=== PATIENT | female | born 1960 | race Hispanic/Latino ===

== ENCOUNTER 2016-09-03 08:59 | Emergency (ER) | payer OTHER ==
[2016-09-03 08:59] VITALS: BMI 24.7
[2016-09-03] MEDS ORDERED: Sodium Chloride 0.9% 500 ML IV ONE (09:42)
[2016-09-03] MEDS ORDERED: MethylPREDNISolone 40 mg Vial IVP STA (09:43)
[2016-09-03] MEDS ORDERED: Albuterol-Ipratrop 3 mg / 0.5 (3 ml) UD INH STA (09:44)
[2016-09-03] MEDS ORDERED: Albuterol-Ipratrop 3 mg / 0.5 (3 ml) UD ONE (09:52)
[2016-09-03] MEDS ORDERED: Sodium Chloride 0.9% 1,000 ML ONE (09:52)
[2016-09-03] MEDS ORDERED: MethylPREDNISolone 40 mg Vial ONE (09:52)
[2016-09-03 10:11] LABS: BASO # 0.1 K/uL (0.0-0.2); BASO % 0.7 % (0.0-2.0); EOS # 0.2 K/uL (0.0-0.7); EOS % 2.5 % (0.0-4.0); HEMATOCRIT 43.6 % (34.0-47.0); LYMPH # 1.6 K/uL (1.0-4.3); LYMPH % 22.1 % (20.0-40.0); MEAN CELL VOLUME 93.8 fL (81.0-99.0); MEAN CORPUSCULAR HEMOGLOBIN 30.8 pg (27.0-31.0); MEAN CORPUSCULAR HGB CONC 32.8 g/dL (33.0-37.0); MEAN PLATELET VOLUME 8.2 fL (7.2-11.7); MONO # 0.7 K/uL (0.0-0.8); NRBC % 0.1 % (0.0-2.0); RED CELL DISTRIBUTION WIDTH 13.6 % (11.5-14.5); WHITE BLOOD COUNT 7.4 K/uL (4.8-10.8)
[2016-09-03 10:22] LABS: CHLORIDE 104 mmol/L (98-107); SODIUM 140 mmol/L (132-148)
[2016-09-03 10:24] LABS: ALB/GLOB RATIO 1.2 (1.0-2.1); ALKALINE PHOSPHATASE 85 U/L (38-126); AST/SGOT 27 U/L (14-36); BILIRUBIN,TOTAL 0.5 mg/dL (0.2-1.3); CARBON DIOXIDE 24 mmol/L (22-30); GFR AFRICAN-AMERICAN > 60; TOTAL PROTEIN 7.5 g/dL (6.3-8.3)
--- NOTE | 2016-09-03 10:24 | C.PDOC ---
History Of Present Illness 56-year-old female, PMHx includes Asthma, presents to the emergency department with complaints of shortness of breath x3 days that is described as chest tightness. Patient notes that she used an inhaler previously for her symptoms, but ran out yesterday, resulting in her coming to the ED for evaluation. Patient notes a Hx of similar. Denies nausea/vomiting, dizziness, fevers, chills , chest pain, or any other associated symptoms. No other complaints at this time. Time Seen by Provider: 09/03/16 09:37 Chief Complaint (Nursing): Shortness Of Breath History Per: Patient History/Exam Limitations: no limitations Onset/Duration Of Symptoms: Days Current Symptoms Are (Timing): Still Present Past Medical History Reviewed: Historical Data, Nursing Documentation, Vital Signs Vital Signs: Last Vital Signs Temp 98.4 F 09/03/16 14:30 Pulse 70 09/03/16 14:30 Resp 18 09/03/16 14:30 BP 115/75 09/03/16 14:30 Pulse Ox 96 09/03/16 17:19 - Medical History PMH: Anxiety, Asthma, Back Problems, Emphysema, Fractures (R hip fx, L ankle , r arm), Chronic Pain (left hip pain) - [facility] Procedures LAPAROSCOPIC REPAIR UMBILICAL HERNIA W GRAFT OR PROSTHESIS (03/15/14) OTH LAPAROSCOPIC REP OTH HRN OF ANTER ABD WALL W GRF OR PROS (03/15/14) Family History: States: Unknown Family Hx - Social History Hx Tobacco Use: Yes Hx Alcohol Use: Yes Hx Substance Use: No - Immunization History Hx Tetanus Toxoid Vaccination: No Hx Influenza Vaccination: No Hx Pneumococcal Vaccination: No Review Of Systems Except As Marked, All Systems Reviewed And Found Negative. Constitutional: Negative for: Fever, Chills Cardiovascular: Negative for: Chest Pain (tightness) Respiratory: Positive for: Shortness of Breath. Negative for: Cough, Hemoptysis Gastrointestinal: Negative for: Nausea, Vomiting Skin: Negative for: Rash Neurological: Negative for: Weakness, Numbness, Headache, Dizziness Physical Exam - Physical Exam Appears: Non-toxic, No Acute Distress Skin: Normal Color, Warm, Dry, No Rash Head: Atraumatic, Normacephalic Eye(s): bilateral: Normal Inspection, EOMI Nose: Normal Oral Mucosa: Moist Lips: Normal Appearing Neck: Normal ROM Chest: Symmetrical Cardiovascular: Rhythm Regular Respiratory: No Accessory Muscle Use, Wheezing (scattered B/L) Gastrointestinal/Abdominal: Soft, No Tenderness Extremity: Normal ROM Neurological/Psych: Oriented x3, Normal Speech ED Course And Treatment - Laboratory Results Result Diagrams: 09/03/16 10:03 09/03/16 10:03 ECG: Interpreted By Me, Viewed By Me ECG Rhythm: Sinus Rhythm Rate From EC O2 Sat by Pulse Oximetry: 96 - Radiology CXR: Interpreted by Me, Viewed By Me CXR Interpretation: Yes: No Acute Disease Progress Note: EKG. BNP, CK-MB, CMP, C Phos, Trop I. Chest X-Ray. CBC, D- Dimer. Duoneb, IVF, Solu-Medrol. Reassess and Disposition. Progress: On re- evaluation, wheezing has improved. PT notes SOB persists minimally. Additional Duoneb will be ordered and pt will be reassessed. Progress: On re-evaluation, pts lungs are clear to auscultation bilaterally. Pt feels comfortable going home. Will be dc w/ Rx for nebulizer. Instructed to return to ER if symptoms persist or worsen. Disposition - Disposition Disposition: HOME/ ROUTINE Disposition Time: 14:17 Condition: STABLE Additional Instructions: Follow up with your primary medical doctor or clinic in 2-5 days for further evaluation. Take medications as prescribed. Return to the emergency department at any time if symptoms persist or worsen. Prescriptions: Albuterol HFA [Ventolin HFA 90 mcg/actuation (8 g)] 2 puff IH H2VOLRD #1 puff predniSONE [Prednisone] 40 mg PO DAILY #8 tab Instructions: Acute Bronchitis (ED) - Clinical Impression Clinical Impression: Bronchitis - Scribe Statement The provider has reviewed the documentation as recorded by the Diann Parker All medical record entries made by the Scribe were at my direction and personally dictated by me. I have reviewed the chart and agree that the record accurately reflects my personal performance of the history, physical exam, medical decision making, and the department course for this patient. I have also personally directed, reviewed, and agree with the discharge instructions and disposition.
[2016-09-03 10:25] LABS: ALT/SGPT 14 U/L (9-52); BLOOD UREA NITROGEN 12 mg/dL (7-17); CALCIUM 9.1 mg/dl (8.6-10.4); GLUCOSE,RANDOM 95 mg/dL (65-105)
--- NOTE | 2016-09-03 10:42 | RAD ---
HISTORY: SOB COMPARISON: 02/02/2015 TECHNIQUE: Chest PA and lateral FINDINGS: LUNGS: Mild hyperinflation common nonspecific. PLEURA: No significant pleural effusion identified. No pneumothorax apparent. CARDIOVASCULAR: Normal. OSSEOUS STRUCTURES: No significant abnormalities. VISUALIZED UPPER ABDOMEN: Normal. OTHER FINDINGS: None. IMPRESSION: Mild pulmonary hyperinflation. No pulmonary infiltrate.
[2016-09-03] MEDS ORDERED: Albuterol 0.083% Inhal Sol (2.5 mg/3 mL) UD IH STA (11:50)
[2016-09-03] MEDS ORDERED: Albuterol 0.083% Inhal Sol (2.5 mg/3 mL) UD ONE (12:32)
[2016-09-03 12:39] VITALS: BP 115/75; RESP 18
[2016-09-03 14:31] VITALS: PULSE 70; TEMP 98.4
[2016-09-03 15:25] VITALS: O2SAT 96
--- NOTE | 2016-09-04 12:27 | CARD ---
APPROVED REPORT EKG Measurement Heart [id number] <Conclusion> Normal sinus rhythm Normal ECG
== END 2016-09-03 14:38 | disposition home or self-care (01) ==
LOC: C.ER 08:59
DX: J40 Bronchitis, not specified as acute or chronic (principal)
CPT/HCPCS: 71020; 80053; 82550; 82553; 83880; 84484; 85025; 85378; 93005; 96374; 99285; J2920; J7040

== ENCOUNTER 2016-09-16 18:00 | Emergency (ER) | payer OTHER ==
[2016-09-16 18:01] VITALS: BMI 24.7
[2016-09-16 18:16] VITALS: BP 111/74; PULSE 97; RESP 18; TEMP 98.2; O2SAT 98
[2016-09-16] MEDS ORDERED: Naproxen 550 mg Tab PO STA (18:27)
[2016-09-16] MEDS ORDERED: Naproxen 550 mg Tab PO ONE (18:37)
--- NOTE | 2016-09-16 18:59 | C.PDOC ---
History Of Present Illness 56 year old patient presents to the ED complaining of pain to her right knee for the past few days. Patient states she feels a "popping" sensation in her knee which is followed by pain. Patient reports this started in Summer of 2015 and she thought it would resolve on its own. For the last few days, the pain has been worse. The pain is exacerbated by bending. Patient denies falls, injuries, bruising, numbness, weakness, or fever Time Seen by Provider: 09/16/16 18:24 Chief Complaint (Nursing): Lower Extremity Problem/Injury History Per: Patient History/Exam Limitations: no limitations Onset/Duration Of Symptoms: Days (past few) Current Symptoms Are (Timing): Still Present Severity: Mild Pain Scale Rating Of: 3 Recent travel outside of the [place]: No - Ankle/Foot Currently Unable To: Bend Or Move Past Medical History Reviewed: Historical Data, Nursing Documentation, Vital Signs Vital Signs: Last Vital Signs Temp 98.2 F 09/16/16 18:13 Pulse 97 H 09/16/16 18:13 Resp 18 09/16/16 18:13 BP 111/74 09/16/16 18:13 Pulse Ox 98 09/16/16 19:28 - Medical History PMH: Anxiety, Asthma, Back Problems, Emphysema, Fractures (R hip fx, L ankle , r arm), Gastrointestinal Ulcer, Chronic Pain (left hip pain) - [facility] Procedures LAPAROSCOPIC REPAIR UMBILICAL HERNIA W GRAFT OR PROSTHESIS (03/15/14) OTH LAPAROSCOPIC REP OTH HRN OF ANTER ABD WALL W GRF OR PROS (03/15/14) Family History: States: Unknown Family Hx - Social History Hx Tobacco Use: Yes Hx Alcohol Use: Yes Hx Substance Use: No - Immunization History Hx Tetanus Toxoid Vaccination: No Hx Influenza Vaccination: No Hx Pneumococcal Vaccination: No Review Of Systems Except As Marked, All Systems Reviewed And Found Negative. Constitutional: Negative for: Fever Musculoskeletal: Positive for: Other (right knee pain) Skin: Negative for: Bruising Neurological: Negative for: Weakness, Numbness Physical Exam - Physical Exam Appears: Non-toxic, No Acute Distress Skin: Warm, Dry Head: Atraumatic, Normacephalic Eye(s): bilateral: Normal Inspection, EOMI Nose: Normal Oral Mucosa: Moist Neck: Normal ROM, Supple Chest: Symmetrical Respiratory: No Accessory Muscle Use Back: Normal Inspection Extremity: Normal ROM, Tenderness (medial aspect of the right knee), No Pedal Edema, No Calf Tenderness, Capillary Refill (<2 seconds), No Deformity, No Swelling Pulses: Left Dorsalis Pedis: Normal, Right Dorsalis Pedis: Normal Neurological/Psych: Oriented x3, Normal Speech, Normal Cognition, Normal Motor, Normal Sensation Gait: Steady ED Course And Treatment O2 Sat by Pulse Oximetry: 98 (RA) Pulse Ox Interpretation: Normal - Other Rad right knee x-ray X-Ray: Interpreted by Me, Viewed By Me Interpretation: no fracture or dislocation Progress Note: Plan: -right knee x-ray. -Naproxen. -Ice. Knee brace applied by regulatory and compliance technician. Instructed to follow up with ortho in 1-2 days. Disposition - Disposition Referrals: Doyel Turner III, MD [Staff Provider] - Disposition: HOME/ ROUTINE Disposition Time: 19:26 Condition: STABLE Additional Instructions: Follow up with your primary medical doctor or clinic in 2-5 days for further evaluation. Take medications as prescribed. Return to the emergency department at any time if symptoms persist or worsen. 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 - Scribe Statement The provider has reviewed the documentation as recorded by the Scribe Millie Velazco All medical record entries made by the Scribe were at my direction and personally dictated by me. I have reviewed the chart and agree that the record accurately reflects my personal performance of the history, physical exam, medical decision making, and the department course for this patient. I have also personally directed, reviewed, and agree with the discharge instructions and disposition.
--- NOTE | 2016-09-17 08:54 | RAD ---
Right knee three views History: Knee pain. Comparison: None available. Findings: No evidence for acute displaced fracture or dislocation. Mild medial and patellofemoral compartment joint space narrowing of the femorotibial joint space. Small suprapatellar joint effusion. Curvilinear opacity at the base of the tibial spines on the medial aspect likely represents Mach artifact and/or vascular groove. Impression: No evidence for acute displaced fracture or dislocation. Mild medial and patellofemoral compartment joint space narrowing of the femorotibial joint space. Small suprapatellar joint effusion. Curvilinear opacity at the base of the tibial spines on the medial aspect likely represents Mach artifact and/or vascular groove. If pain persists, consider MRI.
== END 2016-09-16 19:35 | disposition home or self-care (01) ==
LOC: C.ER 18:00
DX: M25.561 Pain in right knee (principal)

== ENCOUNTER 2016-12-04 18:28 | Emergency (ER) | payer OTHER ==
[2016-12-04 18:29] VITALS: BMI 24.7
[2016-12-04 18:47] VITALS: BP 128/86; PULSE 78; RESP 16; TEMP 98.1; O2SAT 98
[2016-12-04] MEDS ORDERED: Dexamethasone 4 mg/1 ml IM STA (19:15)
[2016-12-04] MEDS ORDERED: Dexamethasone 4 mg/1 ml ONE (19:21)
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
--- NOTE | 2016-12-05 08:06 | CT ---
PROCEDURE: CT Cervical Spine without contrast HISTORY: Trauma, right-sided neck pain COMPARISON: None available. TECHNIQUE: Axial computed tomography images were obtained of the cervical spine without the use of intravenous contrast. Coronal and sagittal reformatted images were created and reviewed. Radiation dose: Total exam DLP = 419 mGy-cm. This CT exam was performed using one or more of the following dose reduction techniques: Automated exposure control, adjustment of the mA and/or kV according to patient size, and/or use of iterative reconstruction technique. FINDINGS: VERTEBRAE: No definite fractures appreciated that the cervical spine although there is straightening of the cervical curvature. A minimal grade 1 spondylolisthesis identified at C4-5 with C4 slightly anterior to C5 by 2 mm and C5 is minimally subluxed posterior C6 by even less. This ultimately did degenerative basis with multiple degenerative arthropathy appreciated throughout cervical spine contrast through the mid and inferior levels. Marked endplate degenerative changes are identified at C5-6 and C6-7 and somewhat also at C3-4. No suspicious liver lesions identified. Marked disc height loss at the C5-6 and C6-7. Prevertebral paraspinal soft tissues appear grossly unremarkable. DISCS/SPINAL CANAL/NEURAL FORAMINA: At C2-3, there is no central canal or neural stenosis although uncovertebral osteophytes are seen bilaterally at C2-3. At C3-4, mild bilateral neural foraminal stenoses are identify some degree of left and right feet osteophytic changes with marginal disc bulging seen posteriorly but without significant central canal stenosis. At C4-5, no significant stenosis identified although a limited spinal listhesis is appreciated. Degenerative osteophytes are greater at the right than left neural foraminal and mild right neural foraminal stenosis and none on the left. At C5-6, a mild central stenosis results from disc osteophyte complex as well as limited spondylolisthesis. Moderate to severe degenerate right neuroforaminal is identified with a borderline stenosis of the left. At C6-7 and C7-T1, there is a borderline C6-7 central canal stenosis due to disc osteophyte complex as well as borderline degerative bilateral neural foraminal stenoses. C7-T1 is unremarkable. PARASPINAL SOFT TISSUES: Unremarkable. OTHER FINDINGS: Mild emphysematous changes are identified incidentally the bilateral pulmonary apices. IMPRESSION: No acute fracture identified. Minimal degenerative spondylolistheses identified at C4-5 and C5-6. Multilevel degenerative spondylosis with generally mild central canal and bilateral foraminal stenoses encountered. Moderate to severe degenerative stenosis right C5-6 neuroforamen.
== END 2016-12-04 21:04 | disposition home or self-care (01) ==
LOC: C.ER 18:28
DX: S16.1XXA Strain of muscle, fascia and tendon at neck level, initial encounter (principal); V53.6XXA Passenger in pick-up truck or van injured in collision with car, pick-up truck or van in traffic accident, initial encounter; Y92.9 Unspecified place or not applicable
CPT/HCPCS: 72125; 96372; 99283; J1100; J1885

== ENCOUNTER 2016-12-09 10:42 | Emergency (ER) | payer OTHER ==
[2016-12-09 10:47] VITALS: BMI 21.7
[2016-12-09] MEDS ORDERED: MethylPREDNISolone 40 mg Vial IVP STA (11:41)
[2016-12-09] MEDS ORDERED: Sodium Chloride 0.9% 500 ML IV ONE ×2 (11:41→12:01)
[2016-12-09] MEDS ORDERED: Albuterol-Ipratrop 3 mg / 0.5 (3 ml) UD INH STA (11:42)
[2016-12-09] MEDS ORDERED: MethylPREDNISolone 40 mg Vial ONE (12:01)
[2016-12-09 12:07] LABS: BASO # 0.1 K/uL (0.0-0.2); BASO % 1.2 % (0.0-2.0); EOS # 0.3 K/uL (0.0-0.7); EOS % 3.9 % (0.0-4.0); HEMOGLOBIN 14.2 g/dL (11.0-16.0); LYMPH # 1.9 K/uL (1.0-4.3); LYMPH % 24.8 % (20.0-40.0); MEAN CELL VOLUME 95.3 fL (81.0-99.0); MEAN CORPUSCULAR HEMOGLOBIN 31.4 pg (27.0-31.0); MEAN CORPUSCULAR HGB CONC 32.9 g/dL (33.0-37.0); MEAN PLATELET VOLUME 8.2 fL (7.2-11.7); MONO % 12.7 % (0.0-10.0); NEUT # 4.4 K/uL (1.8-7.0); NEUT % 57.4 % (50.0-75.0); NRBC % 0.1 % (0.0-2.0); RBC 4.54 Mil/uL (3.80-5.20); RED CELL DISTRIBUTION WIDTH 13.5 % (11.5-14.5); WHITE BLOOD COUNT 7.7 K/uL (4.8-10.8)
[2016-12-09 12:09] LABS: ALBUMIN 3.5 g/dL (3.5-5.0)
[2016-12-09 12:12] LABS: ALB/GLOB RATIO 1.1 (1.0-2.1); ALT/SGPT 20 U/L (9-52); AST/SGOT 22 U/L (14-36); BLOOD UREA NITROGEN 10 mg/dL (7-17); CALCIUM 8.7 mg/dl (8.6-10.4); GFR AFRICAN-AMERICAN > 60; GFR NON-AFRICAN AMERICAN > 60
[2016-12-09 12:21] LABS: CK-MB 0.79 ng/mL (0.0-3.38)
[2016-12-09] MEDS ORDERED: Albuterol 0.083% Inhal Sol (2.5 mg/3 mL) UD IH STA (12:23)
[2016-12-09 12:46] VITALS: TEMP 98.1; O2SAT 96
--- NOTE | 2016-12-09 13:11 | RAD ---
PROCEDURE: CHEST RADIOGRAPH, 1 VIEW HISTORY: SOB COMPARISON: Comparison is made to 09/03/2016 FINDINGS: LUNGS: Clear. PLEURA: No pneumothorax or pleural fluid seen. CARDIOVASCULAR: Normal. OSSEOUS STRUCTURES: No significant abnormalities. VISUALIZED UPPER ABDOMEN: Normal. OTHER FINDINGS: None. IMPRESSION: No active disease.
--- NOTE | 2016-12-09 13:24 | C.PDOC ---
History Of Present Illness 56-year-old female, PMHx includes Anxiety, Asthma, and Emphysema presents to the emergency department with complaints of shortness of breath, that is described as chest tightness. Patient states symptoms are associated with a cough and runny nose. Denies fevers. States she has a Hx of similar symptoms in the past, and she would typically use her inhaler but does not have one, therefore, she came to ED for evaluation. Denies chest pain. No other complaints at this time. Time Seen by Provider: 12/09/16 11:30 Chief Complaint (Nursing): Shortness Of Breath History Per: Patient History/Exam Limitations: no limitations Onset/Duration Of Symptoms: Hrs Current Symptoms Are (Timing): Still Present Past Medical History Reviewed: Historical Data, Nursing Documentation, Vital Signs Vital Signs: Last Vital Signs Temp 98.1 F 12/09/16 14:01 Pulse 76 12/09/16 14:01 Resp 18 12/09/16 14:01 BP 124/75 12/09/16 14:01 Pulse Ox 96 12/09/16 14:01 - Medical History PMH: Anxiety, Asthma, Back Problems, Emphysema, Fractures (R hip fx, L ankle , r arm), Gastrointestinal Ulcer, Chronic Pain (left hip pain) - [facility] Procedures LAPAROSCOPIC REPAIR UMBILICAL HERNIA W GRAFT OR PROSTHESIS (03/15/14) OTH LAPAROSCOPIC REP OTH HRN OF ANTER ABD WALL W GRF OR PROS (03/15/14) Family History: States: No Known Family Hx - Social History Hx Tobacco Use: Yes Hx Alcohol Use: Yes Hx Substance Use: No - Immunization History Hx Tetanus Toxoid Vaccination: No Hx Influenza Vaccination: No Hx Pneumococcal Vaccination: No Review Of Systems Except As Marked, All Systems Reviewed And Found Negative. Constitutional: Negative for: Fever ENT: Positive for: Nose Discharge Cardiovascular: Negative for: Chest Pain, Palpitations Respiratory: Positive for: Cough, Shortness of Breath Gastrointestinal: Negative for: Nausea, Vomiting Neurological: Negative for: Weakness, Numbness, Headache, Dizziness Physical Exam - Physical Exam Appears: Non-toxic, No Acute Distress Skin: Warm, Dry, No Rash Head: Atraumatic, Normacephalic Eye(s): bilateral: Normal Inspection, PERRL, EOMI Ear(s): Left: Normal, Right: TM Obscured By Wax Nose: Normal Oral Mucosa: Moist Lips: Normal Appearing Throat: Normal, No Erythema, No Exudate Neck: Normal ROM, Supple Chest: Symmetrical Cardiovascular: Rhythm Regular, No Murmur Respiratory: No Accessory Muscle Use, Wheezing (B/L) Gastrointestinal/Abdominal: Soft, No Tenderness Extremity: Normal ROM Neurological/Psych: Oriented x3, Normal Speech ED Course And Treatment - Laboratory Results Result Diagrams: 12/09/16 11:56 12/09/16 11:56 ECG: Interpreted By Me, Viewed By Me ECG Rhythm: Sinus Rhythm Rate From EC O2 Sat by Pulse Oximetry: 96 Progress Note: EKG, Blood work, chest x-ray ordered and reviewed. patient treated with IVFS, duoneb and solumedrol. On re-evaluation, Patient is resting comfortably with no wheezing, chest pain, or retractions. Oxygen saturation has improved. Symptoms resolved. No chest pain or tightness. Ot requests to go home with rx for inhaler. Discussed pulmonolgoist, smoking cessation, and advised to follow up with physician in 1-2 days. Disposition - Disposition Referrals: Maico Parmar MD [Staff Provider] - Disposition: HOME/ ROUTINE Disposition Time: 13:34 Condition: STABLE Additional Instructions: Follow up with your primary medical doctor or clinic in 2-5 days for further evaluation. Take medications as prescribed. Return to the emergency department at any time if symptoms persist or worsen. 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 - Scribe Statement The provider has reviewed the documentation as recorded by the Scribe (Dianna Parker) All medical record entries made by the Scribe were at my direction and personally dictated by me. I have reviewed the chart and agree that the record accurately reflects my personal performance of the history, physical exam, medical decision making, and the department course for this patient. I have also personally directed, reviewed, and agree with the discharge instructions and disposition.
[2016-12-09 14:14] VITALS: BP 124/75; PULSE 76; RESP 18
--- NOTE | 2016-12-10 13:02 | CARD ---
APPROVED REPORT EKG Measurement Heart [id number] <Conclusion> Sinus rhythm with 1st degree AV block Possible Left atrial enlargement Septal infarct, age undetermined Abnormal ECG
== END 2016-12-09 14:01 | disposition home or self-care (01) ==
LOC: C.ER 10:42
DX: J98.01 Acute bronchospasm (principal)
CPT/HCPCS: 71010; 80053; 82550; 82553; 84484; 85025; 93005; 94640; 96374; 99285; J2920; J7040

== ENCOUNTER 2017-01-29 20:30 | Emergency (ER) | payer OTHER ==
[2017-01-29 20:30] VITALS: BMI 21.7
[2017-01-29 20:52] VITALS: RESP 16; TEMP 98.2
--- NOTE | 2017-01-29 21:57 | C.PDOC ---
History Of Present Illness Patient presents with some chest discomfort since yesterday, which she feels it' s from her anxiety. has not had any xanax in a while. Speaking in complete sentences. No fever, chills, nausea or vomiting. Time Seen by Provider: 01/29/17 21:56 Chief Complaint (Nursing): Chest Pain History Per: Patient History/Exam Limitations: no limitations Onset/Duration Of Symptoms: Hrs Current Symptoms Are (Timing): Better Severity: Mild Pain Scale Rating Of: 2 Reports Recently: Treated By A Physician Recent travel outside of the [place]: No Additional History Per: Patient Past Medical History Reviewed: Historical Data, Nursing Documentation, Vital Signs Vital Signs: Last Vital Signs Temp 98.2 F 01/29/17 20:44 Pulse 82 01/29/17 23:30 Resp 16 01/29/17 23:30 BP 121/77 01/29/17 23:30 Pulse Ox 95 01/29/17 23:30 - Medical History PMH: Anxiety, Asthma, Back Problems, Emphysema, Fractures (R hip fx, L ankle , r arm), Gastrointestinal Ulcer, Chronic Pain (left hip pain) - [facility] Procedures LAPAROSCOPIC REPAIR UMBILICAL HERNIA W GRAFT OR PROSTHESIS (03/15/14) OTH LAPAROSCOPIC REP OTH HRN OF ANTER ABD WALL W GRF OR PROS (03/15/14) Family History: States: No Known Family Hx - Social History Hx Tobacco Use: Yes Hx Alcohol Use: Yes Hx Substance Use: No - Immunization History Hx Tetanus Toxoid Vaccination: No Hx Influenza Vaccination: No Hx Pneumococcal Vaccination: No Review Of Systems Constitutional: Negative for: Fever, Chills Eyes: Negative for: Redness ENT: Negative for: Throat Pain Cardiovascular: Positive for: Chest Pain Respiratory: Negative for: Shortness of Breath Gastrointestinal: Negative for: Abdominal Pain Genitourinary: Negative for: Dysuria Musculoskeletal: Negative for: Back Pain Skin: Negative for: Rash, Lesions, Jaundice Neurological: Negative for: Weakness Psych: Positive for: Anxiety Physical Exam - Physical Exam Appears: Non-toxic, No Acute Distress Skin: Warm, Diaphoretic Head: Normacephalic Eye(s): bilateral: Normal Inspection Oral Mucosa: Moist Neck: Supple Cardiovascular: Rhythm Regular Respiratory: No Rales, No Rhonchi, No Wheezing Gastrointestinal/Abdominal: Soft, No Tenderness, No Distention Back: No CVA Tenderness Extremity: No Normal ROM Extremity: Bilateral: Atraumatic, Normal Color And Temperature, Normal ROM Pulses: Left Dorsalis Pedis: Normal, Right Dorsalis Pedis: Normal Neurological/Psych: Oriented x3, Normal Speech, Normal Cognition Gait: Steady ED Course And Treatment - Laboratory Results Result Diagrams: 01/29/17 22:28 01/29/17 22:28 ECG: Interpreted By Me, Viewed By Me ECG Rhythm: Sinus Rhythm (88), Nonspecific Changes O2 Sat by Pulse Oximetry: 95 Pulse Ox Interpretation: Normal - Radiology CXR: Interpreted by Me, Viewed By Me CXR Interpretation: No: Infiltrates, Fracture, Pnemothorax Reevaluation Time: 23:53 Reassessment Condition: Improved Medical Decision Making Medical Decision Making: Upon provider reevaluation patient is feeling better, is medically stable, and requires no further treatment in the ED at this time. Patient will be discharged home with Rx for ativan . Counseling was provided and all questions were answered regarding diagnosis and need for follow up with dr harry hull. There is agreement to discharge plan. Return if symptoms persist or worsen. I considered the following diagnoses: acute coronary syndrome, pulmonary embolism, lower respiratory infection, aortic dissection/aneurysm, pneumothorax , pericarditis, esophagitis/GERD, zoster and esophageal rupture but found them to be unlikely based on the history, physical exam, and diagnostics. My conclusions regarding the unlikely diagnoses were based on: the absence of significant EKG abnormalities, the lack of suggestive x-ray findings, the absence of significant abnormalities on cardiac monitoring, the absence of asymmetric pulses,Pt is chest pain free and wants to go home Disposition Counseled Patient/Family Regarding: Studies Performed, Diagnosis - Disposition Referrals: Susy Green MD [Staff Provider] - Disposition: HOME/ ROUTINE Disposition Time: 21:57 Condition: FAIR Additional Instructions: Please return if symptoms recur Prescriptions: Lorazepam [Ativan] 0.5 mg PO Q12H PRN #6 tab PRN Reason: Anxiety Instructions: Anxiety (ED), Chest Pain (DC) Forms: [employer] (Vietnamese) - Clinical Impression Clinical Impression: Chest pain, Anxiety
[2017-01-29] MEDS ORDERED: Aspirin 325 mg EC Tablets PO STA (21:59)
[2017-01-29 22:30] LABS: BASO # 0.1 K/uL (0.0-0.2); BASO % 1.4 % (0.0-2.0); EOS # 0.4 K/uL (0.0-0.7); EOS % 4.6 % (0.0-4.0); HEMATOCRIT 40.7 % (34.0-47.0); LYMPH # 2.4 K/uL (1.0-4.3); LYMPH % 28.7 % (20.0-40.0); MEAN CORPUSCULAR HEMOGLOBIN 31.5 pg (27.0-31.0); MEAN PLATELET VOLUME 7.8 fL (7.2-11.7); MONO # 0.8 K/uL (0.0-0.8); MONO % 9.8 % (0.0-10.0); RED CELL DISTRIBUTION WIDTH 13.1 % (11.5-14.5); WHITE BLOOD COUNT 8.4 K/uL (4.8-10.8)
[2017-01-29 22:36] LABS: MEAN CELL VOLUME 92.7 fL (81.0-99.0)
[2017-01-29] MEDS ORDERED: Aspirin 325 mg EC Tablets PO ONE (22:38)
[2017-01-29 22:40] LABS: CHLORIDE 104 mmol/L (98-107)
[2017-01-29 22:41] LABS: POTASSIUM 3.9 mmol/L (3.6-5.2); SODIUM 140 mmol/L (132-148)
[2017-01-29 22:41] LABS: RBC URINE 3 /hpf (0-3); URINE BACTERIA FEW (<OCC); URINE BILIRUBIN NEGATIVE (NEGATIVE); URINE BLOOD NEGATIVE (NEGATIVE); URINE COLOR Yellow (YELLOW); URINE GLUCOSE (UA) NORMAL (Normal); URINE KETONE NEGATIVE (NEGATIVE); URINE LEUKOCYTE ESTERASE 2+ Leu/uL (Negative); URINE PROTEIN NEGATIVE (NEGATIVE); URINE UROBILINOGEN NORMAL mg/dL (0.2-1.0); WBC URINE 17 /hpf (0-5)
[2017-01-29 22:43] LABS: ALB/GLOB RATIO 1.3 (1.0-2.1); ALKALINE PHOSPHATASE 75 U/L (38-126); AST/SGOT 20 U/L (14-36); BILIRUBIN,TOTAL 0.6 mg/dL (0.2-1.3); CARBON DIOXIDE 26 mmol/L (22-30); GFR AFRICAN-AMERICAN > 60; TOTAL PROTEIN 6.5 g/dL (6.3-8.3)
[2017-01-29 22:44] LABS: ALT/SGPT 21 U/L (9-52); BLOOD UREA NITROGEN 12 mg/dL (7-17); GLUCOSE,RANDOM 98 mg/dL (65-105)
[2017-01-29 23:45] VITALS: BP 121/77; PULSE 82; O2SAT 95
--- NOTE | 2017-01-30 10:33 | RAD ---
PROCEDURE: CHEST RADIOGRAPH, 1 VIEW HISTORY: chest pain COMPARISON: Portable chest 12/09/2016. FINDINGS: LUNGS: Clear. PLEURA: No pneumothorax or pleural fluid seen. CARDIOVASCULAR: Normal. OSSEOUS STRUCTURES: No significant abnormalities. VISUALIZED UPPER ABDOMEN: Normal. OTHER FINDINGS: None. IMPRESSION: No acute cardiopulmonary disease or significant change identified.
--- NOTE | 2017-01-31 18:07 | CARD ---
APPROVED REPORT EKG Measurement Heart [id number] <Conclusion> Normal sinus rhythm Possible Left atrial enlargement Possible Anterior infarct, age undetermined Abnormal ECG
== END 2017-01-30 00:12 | disposition home or self-care (01) ==
LOC: C.ER 20:30
DX: R07.9 Chest pain, unspecified (principal); F41.9 Anxiety disorder, unspecified

== ENCOUNTER 2017-02-12 08:43 | Emergency (ER) | payer OTHER ==
[2017-02-12 08:43] VITALS: BMI 21.7
--- NOTE | 2017-02-12 09:21 | C.PDOC ---
History Of Present Illness 56 year old female presents to the ED with complaints of exacerbation of chronic neck and back pain since yesterday. Patient notes neck and back pain for years and has taken Percocet and Flexeril in the past. She is currently taking Ibuprofen for pain and denies fever, numbness, or weakness. Time Seen by Provider: 02/12/17 09:12 Chief Complaint (Nursing): Back Pain History Per: Patient History/Exam Limitations: no limitations Onset/Duration Of Symptoms: Persistent (chronic neck and back pain "for years" ) , Worse Since (yesterday) Current Symptoms Are (Timing): Still Present Quality Of Discomfort: "Pain" Previous Symptoms: Back Pain, Neck Pain Associated Symptoms: None Exacerbating Factor(s): Movement Recent travel outside of the [place]: No Additional History Per: Prior Records Past Medical History Reviewed: Historical Data, Nursing Documentation, Vital Signs Vital Signs: Last Vital Signs Temp 98.1 F 02/12/17 09:49 Pulse 78 02/12/17 09:49 Resp 18 02/12/17 09:49 BP 137/75 02/12/17 09:49 Pulse Ox 95 02/12/17 13:15 - Medical History PMH: Anxiety, Asthma, Back Problems (Cervical - T1 spinal stenosis), Emphysema, Fractures (R hip fx, L ankle , r arm), Gastrointestinal Ulcer, Chronic Pain ( left hip pain) - [facility] Procedures LAPAROSCOPIC REPAIR UMBILICAL HERNIA W GRAFT OR PROSTHESIS (03/15/14) OTH LAPAROSCOPIC REP OTH HRN OF ANTER ABD WALL W GRF OR PROS (03/15/14) Family History: States: Other Other Family History: Non-contributory. - Social History Hx Tobacco Use: Yes Hx Alcohol Use: Yes Hx Substance Use: No - Immunization History Hx Tetanus Toxoid Vaccination: No Hx Influenza Vaccination: Yes (2017) Hx Pneumococcal Vaccination: Yes (2017) Review Of Systems Except As Marked, All Systems Reviewed And Found Negative. Constitutional: Negative for: Fever Neurological: Negative for: Weakness, Numbness Physical Exam - Physical Exam Appears: Non-toxic, No Acute Distress Skin: Warm, Dry Head: Atraumatic Neck: Normal ROM, Paracervical Tenderness (along paracervical muscle) Back: No Decreased ROM, Paraspinal Tenderness (along paracervical musclein upper thoracic area of back ) Extremity: Normal ROM, No Tenderness Pulses: Left Radial: Normal, Right Radial: Normal Neurological/Psych: Oriented x3, Normal Cranial Nerves, No Cerebellar Signs, Normal Motor, Normal Sensation Gait: Steady ED Course And Treatment O2 Sat by Pulse Oximetry: 95 (room air ) Progress Note: Patient was given toradol. Disposition - Disposition Referrals: Isela Stock MD [Staff Provider] - Disposition: HOME/ ROUTINE Disposition Time: 10:15 Condition: STABLE Additional Instructions: Please follow up with your doctor. You can also take ibuprofen up to 600mg every 6 hours or 800mg every 8 hours for the next four days. In addition you can take up to 1000mg tylenol every 6 hours for the next 4 days as well. You can take these along with the prescribed medication. Return to the ER for any worsening symptoms or for any other concerns. Prescriptions: Cyclobenzaprine [Cyclobenzaprine HCl] 10 mg PO TID PRN #20 tab PRN Reason: Pain, Severe (8-10) Lidocaine 5% [Lidoderm] 1 ea TD DAILY #8 patch Forms: General Discharge Instructions, [facility] (Slovenian) - Clinical Impression Clinical Impression: Neck pain, Back pain - Scribe Statement The provider has reviewed the documentation as recorded by the Scribe Sharon Vaughn All medical record entries made by the Scribe were at my direction and personally dictated by me. I have reviewed the chart and agree that the record accurately reflects my personal performance of the history, physical exam, medical decision making, and the department course for this patient. I have also personally directed, reviewed, and agree with the discharge instructions and disposition.
[2017-02-12 09:50] VITALS: BP 137/75; PULSE 78; RESP 18; TEMP 98.1
[2017-02-12 12:49] VITALS: O2SAT 95
== END 2017-02-12 09:50 | disposition home or self-care (01) ==
LOC: C.ER 08:43
DX: M54.2 Cervicalgia (principal); M54.6 Pain in thoracic spine

== ENCOUNTER 2017-02-17 12:40 | Emergency (ER) | payer OTHER ==
[2017-02-17 12:40] VITALS: BMI 21.7
[2017-02-17 12:50] VITALS: TEMP 98.6; O2SAT 95
[2017-02-17] MEDS ORDERED: Dexamethasone 4 mg/1 ml IM STA (13:53)
[2017-02-17] MEDS ORDERED: Dexamethasone 4 mg/1 ml ONE (14:04)
--- NOTE | 2017-02-17 14:52 | C.PDOC ---
History Of Present Illness 02/17/2017 Sheila Blake is a 56 y/o female whose past medical history includes chronic neck and back pain, presents to the ED complaining of lower back pain radiating down her right leg for several days. Patient notes taking Flexeril and Tylenol, but no significant relief. Patient denies fall, trauma, chest pain, shortness of breath, headache, fever, chills, cough, nausea, vomiting, diarrhea, bowel or bladder incontinence/retention, saddle anesthesia, paresthesias, focal weakness , sensory deficit, gait dysfunction, hematuria or dysuria. Time Seen by Provider: 02/17/17 13:09 Chief Complaint (Nursing): Pain, Chronic History Per: Patient History/Exam Limitations: no limitations Onset/Duration Of Symptoms: Days (several days), Persistent Current Symptoms Are (Timing): Still Present Recent travel outside of the [place]: No Past Medical History Reviewed: Historical Data, Nursing Documentation, Vital Signs Vital Signs: Last Vital Signs Temp 98.6 F 02/17/17 12:46 Pulse 81 02/17/17 15:05 Resp 16 02/17/17 15:05 BP 142/81 02/17/17 15:05 Pulse Ox 95 02/17/17 15:05 - Medical History PMH: Anxiety, Asthma, Back Problems, Emphysema, Fractures (R hip fx, L ankle , r arm), Gastrointestinal Ulcer, Chronic Pain (left hip pain) - [facility] Procedures LAPAROSCOPIC REPAIR UMBILICAL HERNIA W GRAFT OR PROSTHESIS (03/15/14) OTH LAPAROSCOPIC REP OTH HRN OF ANTER ABD WALL W GRF OR PROS (03/15/14) - Social History Hx Tobacco Use: Yes Hx Alcohol Use: Yes Hx Substance Use: No - Immunization History Hx Tetanus Toxoid Vaccination: No Hx Influenza Vaccination: No Hx Pneumococcal Vaccination: No Review Of Systems Constitutional: Negative for: Fever Cardiovascular: Negative for: Chest Pain Respiratory: Negative for: Shortness of Breath Gastrointestinal: Negative for: Vomiting, Abdominal Pain Genitourinary: Negative for: Dysuria, Incontinence Musculoskeletal: Positive for: Back Pain (lower back pain that radiates down the right leg) Neurological: Negative for: Incoordination, Headache Physical Exam - Physical Exam Appears: Well, Non-toxic, No Acute Distress Skin: Normal Color, Warm, Dry Head: Atraumatic, Normacephalic Back: Paraspinal Tenderness (paralumbar tenderness) Neurological/Psych: Oriented x3, Normal Speech, Normal Motor, Normal Sensation, Normal Reflexes Gait: Steady ED Course And Treatment O2 Sat by Pulse Oximetry: 95 (room air) Pulse Ox Interpretation: Normal Medical Decision Making Medical Decision Makin02/17/2017 Impression: 56 y/o female with paralumbar tenderness. normal neuro and steady gait. Plan: -- Decadron -- Toradol -- Reassess and disposition Progress Notes: On re-exam, the patient reports improvement of symptoms. Lungs are CTA, heart is RRR, abdomen is soft non-tender and tolerating Po well. Ambulatory in the ED with steady gait. Follow up with the medical doctor within 1-2 days. Return if worsened. Discussed results and plan with patient. Patient understands results and is agreeable with plan. All questions answered. Disposition - Disposition Referrals: Isela Stock MD [Staff Provider] - Disposition: HOME/ ROUTINE Disposition Time: 14:58 Condition: GOOD Additional Instructions: Follow up with the medical doctor within 1-2 days. Return if worsened. Prescriptions: diaZEpam [Valium] 5 mg PO TID #21 tab Naproxen [Naprosyn] 500 mg PO BID #20 tab predniSONE [Prednisone] 10 mg PO BID #10 tab Instructions: Acute Low Back Pain (ED) Forms: [facility] (Syriac) - Clinical Impression Clinical Impression: Cervical strain, Back pain - Scribe Statement The provider has reviewed the documentation as recorded by the Scribe 02/17/2017 Scribe Attestation: Zlueima Santiago MD Scribe Attestation: All medical record entries made by the Scribe were at my direction and personally dictated by me. I have reviewed the chart and agree that the record accurately reflects my personal performance of the history, physical exam, medical decision making, and the department course for this patient. I have also personally directed, reviewed, and agree with the discharge instructions and disposition.
[2017-02-17 15:06] VITALS: BP 142/81; PULSE 81; RESP 16
== END 2017-02-17 15:05 | disposition home or self-care (01) ==
LOC: C.ER 12:40
DX: M54.5 Low back pain (principal); S16.1XXA Strain of muscle, fascia and tendon at neck level, initial encounter; X58.XXXA Exposure to other specified factors, initial encounter

== ENCOUNTER 2017-04-15 23:18 | Emergency (ER) | payer OTHER ==
[2017-04-15 23:19] VITALS: BMI 21.7
[2017-04-16 01:36] VITALS: RESP 20; O2SAT 99
[2017-04-16] MEDS ORDERED: Aspirin 325 mg EC Tablets PO STA (01:59)
--- NOTE | 2017-04-16 01:59 | C.PDOC ---
History Of Present Illness pt presents with some shortness of breath, cough and occasionally some chest tightness after coughing . Pt still smokes. Chest pain free. Speaking in complete sentences Time Seen by Provider: 04/16/17 01:59 Chief Complaint (Nursing): Chest Pain Past Medical History Reviewed: Historical Data, Nursing Documentation, Vital Signs Vital Signs: Last Vital Signs Temp 98.4 F 04/16/17 01:36 Pulse 74 04/16/17 01:36 Resp 20 04/16/17 01:36 BP 106/70 04/16/17 01:36 Pulse Ox 99 04/16/17 02:42 - Medical History PMH: Anxiety, Asthma, Back Problems, Emphysema, Fractures (R hip fx, L ankle , r arm), Gastrointestinal Ulcer, Chronic Pain (left hip pain) - [facility] Procedures LAPAROSCOPIC REPAIR UMBILICAL HERNIA W GRAFT OR PROSTHESIS (03/15/14) OTH LAPAROSCOPIC REP OTH HRN OF ANTER ABD WALL W GRF OR PROS (03/15/14) Family History: States: No Known Family Hx - Social History Hx Tobacco Use: Yes Hx Alcohol Use: Yes Hx Substance Use: No - Immunization History Hx Tetanus Toxoid Vaccination: No Hx Influenza Vaccination: No Hx Pneumococcal Vaccination: No Review Of Systems Constitutional: Negative for: Fever, Chills Eyes: Negative for: Redness ENT: Negative for: Throat Pain Cardiovascular: Positive for: Chest Pain Respiratory: Positive for: Shortness of Breath, Wheezing Gastrointestinal: Negative for: Nausea, Vomiting, Abdominal Pain Genitourinary: Negative for: Dysuria Musculoskeletal: Negative for: Back Pain Skin: Negative for: Rash Neurological: Negative for: Weakness Psych: Negative for: Anxiety Physical Exam - Physical Exam Appears: Non-toxic, No Acute Distress Skin: Warm, Dry Head: Normacephalic Eye(s): bilateral: Normal Inspection Oral Mucosa: Moist Neck: Trachea Midline, Supple Chest: Symmetrical Cardiovascular: Rhythm Regular Respiratory: No Rales, No Rhonchi, Wheezing Gastrointestinal/Abdominal: Soft, No Tenderness, No Distention Back: No CVA Tenderness Extremity: Normal ROM Extremity: Bilateral: Atraumatic Pulses: Left Dorsalis Pedis: Normal, Right Dorsalis Pedis: Normal Neurological/Psych: Oriented x3, Normal Speech, Normal Cognition Gait: Steady ED Course And Treatment - Laboratory Results Result Diagrams: 04/16/17 02:26 04/16/17 02:26 ECG: Interpreted By Me, Viewed By Me ECG Rhythm: Sinus Rhythm (75), 1st Degree HB, Nonspecific Changes O2 Sat by Pulse Oximetry: 99 Pulse Ox Interpretation: Normal - Radiology CXR: Interpreted by Me, Viewed By Me Reevaluation Time: 04:19 Reassessment Condition: Improved Medical Decision Making Medical Decision Making: Upon provider reevaluation patient is feeling better, is medically stable, and requires no further treatment in the ED at this time. Patient will be discharged home with Rx for duoneb, z pack, prednisone. Counseling was provided and all questions were answered regarding diagnosis and need for follow up with becky. There is agreement to discharge plan. Return if symptoms persist or worsen. Disposition Counseled Patient/Family Regarding: Studies Performed, Diagnosis, Need For Followup, Rx Given, Smoking Cessation - Disposition Referrals: Isela Stock MD [Staff Provider] - Disposition: HOME/ ROUTINE Disposition Time: 01:59 Condition: FAIR Additional Instructions: Please return if symptoms recur Prescriptions: Albuterol/Ipratropium [Duoneb 3 MG/3 Ml-0.5 MG/3 Ml 3 Ml] 3 ml IH QID PRN #50 neb PRN Reason: Cough And Congestion Azithromycin [Zithromax Tri-Christoph] 500 mg PO DAILY #3 tablet Mask, Face [Nebulizer Aerosol Mask Adult] 1 dev XX PRN PRN #1 dev PRN Reason: Cough Nebulizer and Compressor [Comp-Air Nebulizer System] 1 each MC QID #1 each Prednisone [Deltasone] 20 mg PO DAILY #5 tablet Instructions: COPD (Chronic Obstructive Pulmonary Disease) (DC) Forms: [employer] (Romanian) - Clinical Impression Clinical Impression: COPD (chronic obstructive pulmonary disease)
[2017-04-16 02:29] LABS: BASO # 0.1 K/uL (0.0-0.2); BASO % 1.4 % (0.0-2.0); EOS # 0.3 K/uL (0.0-0.7); EOS % 3.2 % (0.0-4.0); HEMATOCRIT 40.6 % (34.0-47.0); LYMPH # 2.7 K/uL (1.0-4.3); LYMPH % 35.3 % (20.0-40.0); MEAN CELL VOLUME 94.6 fL (81.0-99.0); MEAN CORPUSCULAR HEMOGLOBIN 31.5 pg (27.0-31.0); MEAN CORPUSCULAR HGB CONC 33.3 g/dL (33.0-37.0); MEAN PLATELET VOLUME 8.2 fL (7.2-11.7); MONO # 0.9 K/uL (0.0-0.8); MONO % 11.6 % (0.0-10.0); RED CELL DISTRIBUTION WIDTH 13.3 % (11.5-14.5); WHITE BLOOD COUNT 7.7 K/uL (4.8-10.8)
[2017-04-16] MEDS ORDERED: Aspirin 325 mg EC Tablets PO ONE (02:33)
[2017-04-16 02:46] LABS: ALKALINE PHOSPHATASE 73 U/L (38-126); ALT/SGPT 29 U/L (9-52); AST/SGOT 21 U/L (14-36); BILIRUBIN,TOTAL 0.7 mg/dL (0.2-1.3); BLOOD UREA NITROGEN 12 mg/dL (7-17); CALCIUM 8.6 mg/dl (8.6-10.4); CARBON DIOXIDE 24 mmol/L (22-30); CHLORIDE 103 mmol/L (98-107); GFR AFRICAN-AMERICAN > 60; GLUCOSE,RANDOM 89 mg/dL (65-105); POTASSIUM 3.7 mmol/L (3.6-5.2); SODIUM 134 mmol/L (132-148); TOTAL PROTEIN 5.9 g/dL (6.3-8.3)
[2017-04-16] MEDS ORDERED: Albuterol-Ipratrop 3 mg / 0.5 (3 ml) UD ONE ×3 (02:47)
[2017-04-16] MEDS: Albuterol-Ipratrop 3 mg / 0.5 (3 ml) UD IH SCH ×3 (02:52→03:16)
[2017-04-16 02:57] LABS: ALB/GLOB RATIO 1.5 (1.0-2.1)
[2017-04-16 04:30] VITALS: BP 113/72; PULSE 83; TEMP 97.8
[2017-04-16 04:54] LABS: RBC URINE 17 /hpf (0-3); URINE BACTERIA RARE (<OCC); URINE BILIRUBIN NEGATIVE (NEGATIVE); URINE BLOOD NEGATIVE (NEGATIVE); URINE CALCIUM OXALATE CRYSTALS FEW /hpf (<OCC); URINE COLOR Yellow (YELLOW); URINE GLUCOSE (UA) NORMAL (Normal); URINE KETONE NEGATIVE (NEGATIVE); URINE LEUKOCYTE ESTERASE 2+ Leu/uL (Negative); URINE PROTEIN NEGATIVE (NEGATIVE); URINE UROBILINOGEN NORMAL mg/dL (0.2-1.0); WBC URINE 20 /hpf (0-5)
--- NOTE | 2017-04-16 08:39 | RAD ---
PROCEDURE: CHEST RADIOGRAPH, 1 VIEW HISTORY: chest pain COMPARISON: None available. FINDINGS: LUNGS: Hyperinflation suggestive for COPD and or emphysematous changes. Minimal biapical pleural thickening. Small nodular density at the medial right lung apex may represent confluence of shadows with ribs and vessels. PLEURA: No pneumothorax or pleural fluid seen. CARDIOVASCULAR: Calcification at the aortic knob. OSSEOUS STRUCTURES: No significant abnormalities. VISUALIZED UPPER ABDOMEN: Normal. OTHER FINDINGS: None. IMPRESSION: Hyperinflation suggestive for COPD and or emphysematous changes. Minimal biapical pleural thickening. Small nodular density at the medial right lung apex may represent confluence of shadows with ribs and vessels.
--- NOTE | 2017-04-16 19:16 | CARD ---
APPROVED REPORT EKG Measurement Heart [id number] <Conclusion> Normal sinus rhythm Possible Left atrial enlargement Borderline ECG
== END 2017-04-16 04:39 | disposition home or self-care (01) ==
LOC: C.ER 23:18
DX: J44.9 Chronic obstructive pulmonary disease, unspecified (principal)

== ENCOUNTER 2017-08-19 19:10 | Inpatient (IN) | payer OTHER ==
[2017-08-19 19:10] VITALS: BMI 21.7
[2017-08-19] MEDS ORDERED: Albuterol 0.083% Inhal Sol (2.5 mg/3 mL) UD INH STA (19:38)
[2017-08-19] MEDS ORDERED: Albuterol 0.083% Inhal Sol (2.5 mg/3 mL) UD ONE (19:51)
--- NOTE | 2017-08-19 19:55 | C.PDOC ---
History Of Present Illness 57 year old female with a Hx of asthma presents to the ER with a complaint of chest and nasal congestion for the past 3-4 days. Patient has been taking ousmane-d along with her puffer at home with no relief. Patient reports she is a smoker but has not smoked in the past 24 hours. Denies chest pain, nausea, vomiting, or fever. Chief Complaint (Nursing): Cough, Cold, Congestion History Per: Patient History/Exam Limitations: no limitations Onset/Duration Of Symptoms: Days Current Symptoms Are (Timing): Still Present Location Of Pain: None Associated Symptoms: Nasal Congestion, Other (Chest congestion) Ear Symptoms: Bilateral: None Recent travel outside of the [place]: No Past Medical History Reviewed: Historical Data, Nursing Documentation, Vital Signs Vital Signs: Last Vital Signs Temp 98 F 08/19/17 23:05 Pulse 83 08/19/17 23:05 Resp 20 08/19/17 23:05 BP 156/82 H 08/19/17 23:05 Pulse Ox 95 08/19/17 23:05 - Medical History PMH: Anxiety, Asthma, Back Problems, Emphysema, Fractures (R hip fx, L ankle , r arm), Gastrointestinal Ulcer, Chronic Pain (left hip pain) - [facility] Procedures LAPAROSCOPIC REPAIR UMBILICAL HERNIA W GRAFT OR PROSTHESIS (03/15/14) OTH LAPAROSCOPIC REP OTH HRN OF ANTER ABD WALL W GRF OR PROS (03/15/14) Family History: States: Unknown Family Hx - Social History Hx Tobacco Use: Yes Hx Alcohol Use: Yes Hx Substance Use: No - Immunization History Hx Tetanus Toxoid Vaccination: No Hx Influenza Vaccination: No Hx Pneumococcal Vaccination: No Review Of Systems Constitutional: Negative for: Fever, Chills ENT: Positive for: Nose Congestion Cardiovascular: Negative for: Chest Pain, Palpitations Respiratory: Positive for: Other (Chest congestion) Gastrointestinal: Negative for: Nausea, Vomiting, Abdominal Pain Physical Exam - Physical Exam Appears: Non-toxic, Other (Awake, alert, pulse ox 92%, HR 96, BP 137/94, respiratory rate 20) Skin: Normal Color, Warm, Dry Head: Atraumatic, Normacephalic Eye(s): bilateral: Normal Inspection Ear(s): Bilateral: Normal Oral Mucosa: Moist Throat: Normal, No Erythema, No Exudate Neck: Normal, Supple Chest: Symmetrical, No Tenderness Cardiovascular: Rhythm Regular Respiratory: Decreased Breath Sounds (Bilaterally), No Accessory Muscle Use, No Rales, No Rhonchi, Wheezing (Faint) Gastrointestinal/Abdominal: Soft, No Tenderness Neurological/Psych: Oriented x3, Normal Speech ED Course And Treatment - Laboratory Results Result Diagrams: 08/19/17 20:33 08/19/17 20:33 ECG: Interpreted By Me, Viewed By Me ECG Rhythm: Sinus Rhythm ECG Interpretation: Normal Interpretation Of ECst degree AV blocks, intervals within normal limits, left atrial enlargement with poor r wave progression in anterior septal leads, cannot rule out old anterior wall septal ND. Rate From EC O2 Sat by Pulse Oximetry: 92 (Room air) - Radiology CXR: Interpreted by Me, Viewed By Me CXR Interpretation: Yes: Other (Hyperflated lungs, flat diaphragm, consistent with COPD, no infiltrates, cardiac silhouette within normal limits.) Medical Decision Making Medical Decision Making: Impression is mild to moderate asthma exacerbation, will treat with albuterol nebulizer, PO steroids, and reevaluate. On repeat exam, patient has improved air entry, peak flow is 180 after 3 attmepts, continues to exhibit expiratory wheezes, will order labs and CXR, consider admission. Disposition - Disposition Disposition: HOSPITALIZED Disposition Time: 06:53 Condition: FAIR - Clinical Impression Clinical Impression: Influenza A, Bronchospasm - Scribe Statement The provider has reviewed the documentation as recorded by the Scribjeffrey Andrews All medical record entries made by the Scribe were at my direction and personally dictated by me. I have reviewed the chart and agree that the record accurately reflects my personal performance of the history, physical exam, medical decision making, and the department course for this patient. I have also personally directed, reviewed, and agree with the discharge instructions and disposition.
[2017-08-19 20:36] LABS: BASO # 0.1 K/uL (0.0-0.2); BASO % 1.1 % (0.0-2.0); EOS # 0.3 K/uL (0.0-0.7); EOS % 3.4 % (0.0-4.0); HEMOGLOBIN 14.8 g/dL (11.0-16.0); LYMPH # 2.6 K/uL (1.0-4.3); LYMPH % 33.3 % (20.0-40.0); MEAN CELL VOLUME 94.9 fL (81.0-99.0); MEAN CORPUSCULAR HEMOGLOBIN 32.4 pg (27.0-31.0); MEAN CORPUSCULAR HGB CONC 34.2 g/dL (33.0-37.0); MEAN PLATELET VOLUME 7.8 fL (7.2-11.7); MONO % 12.9 % (0.0-10.0); NEUT # 3.8 K/uL (1.8-7.0); NEUT % 49.3 % (50.0-75.0); NRBC % 0.1 % (0.0-2.0); RBC 4.56 Mil/uL (3.80-5.20); RED CELL DISTRIBUTION WIDTH 13.2 % (11.5-14.5); WHITE BLOOD COUNT 7.7 K/uL (4.8-10.8)
[2017-08-19 20:49] LABS: ALB/GLOB RATIO 1.2 (1.0-2.1); ALT/SGPT 13 U/L (9-52); AST/SGOT 21 U/L (14-36); BLOOD UREA NITROGEN 14 mg/dL (7-17); CALCIUM 8.9 mg/dl (8.6-10.4); GFR AFRICAN-AMERICAN > 60; GFR NON-AFRICAN AMERICAN > 60
[2017-08-19 21:00] LABS: B-TYPE NATRIURETIC PEPTIDE 46.3 pg/mL (0-900)
[2017-08-19] MEDS ORDERED: Albuterol-Ipratrop 3 mg / 0.5 (3 ml) UD INH STA (22:55)
--- NOTE | 2017-08-20 08:37 | RAD ---
PROCEDURE: CHEST RADIOGRAPH, 1 VIEW HISTORY: SOB COMPARISON: 04/16/2017. FINDINGS: LUNGS: The lungs are hyperinflated and there is peribronchial thickening with chronic changes in both lungs. No focal consolidation. PLEURA: No pneumothorax or pleural fluid seen. CARDIOVASCULAR: Normal. OSSEOUS STRUCTURES: No significant abnormalities. VISUALIZED UPPER ABDOMEN: Normal. OTHER FINDINGS: None. IMPRESSION: No active pulmonary disease. COPD.
[2017-08-20] MEDS: MethylPREDNISolone 40 mg Vial IVP SCH ×2 (10:43→17:30)
--- NOTE | 2017-08-20 11:24 | CP.PCM.PN ---
Subjective - Date & Time of Evaluation Date of Evaluation: 08/20/17 Time of Evaluation: 10:30 - Subjective Subjective: H&P dictated #[id number] Objective - Vital Signs/Intake and Output Vital Signs (last 24 hours): Temp Pulse Resp BP Pulse Ox 97.8 F 70 20 133/81 96 08/20/17 08:02 08/20/17 08:02 08/20/17 08:02 08/20/17 08:02 08/20/17 08:02 Intake and Output: 08/20/17 08/20/17 06:59 18:59 Intake Total 240 Balance 240 - Medications Medications: Current Medications Acetaminophen (Tylenol 325mg Tab) 650 mg PO Q6 PRN PRN Reason: Pain, moderate (4-7) Last Admin: 08/20/17 11:01 Dose: 650 mg Albuterol/Ipratropium (Duoneb 3 Mg/0.5 Mg (3 Ml) Ud) 3 ml INH RQ6 STUART Famotidine (Pepcid) 20 mg PO DAILY [facility] Last Admin: 08/20/17 10:42 Dose: 20 mg Heparin Sodium (Porcine) (Heparin) 5,000 units SC Q12H STUART Last Admin: 08/20/17 10:43 Dose: 5,000 units Methylprednisolone (Solu-Medrol) 40 mg IVP Q8H STUART Last Admin: 08/20/17 10:43 Dose: 40 mg Oseltamivir Phosphate (Tamiflu Cap) 75 mg PO BID STUART PRN Reason: Protocol Stop: 08/25/17 10:01 Last Admin: 08/20/17 10:43 Dose: 75 mg Pneumococcal Polyvalent Vaccine (Pneumovax 23 Vaccine) 0.5 ml IM .ONCE ONE Stop: 08/22/17 14:01 - Labs Labs: 08/19/17 20:33 08/19/17 20:33 APTT 35 SECONDS (21-34) H 08/20/17 07:08
[2017-08-20] MEDS: guaiFENesin DM 200 mg-20 mg/10 ml UD PO PRN ×2 (13:57→21:26)
[2017-08-20] MEDS: Albuterol-Ipratrop 3 mg / 0.5 (3 ml) UD INH SCH ×2 (14:00→19:44)
--- NOTE | 2017-08-20 23:13 | HP ---
CHIEF COMPLAINT: Progressive worsening of shortness of breath associated with cough over the past 10 days. HISTORY OF PRESENT ILLNESS: Ms. Blake is a 57-year-old female with past medical history of asthma for many years, was never admitted to the hospital, used to be treated at EDs, and she has been using her inhaler a lot at home for the past 10 days, was not able to breathe yesterday which made her come to the hospital. As per the patient, about 10 days ago, she was in a laundromat, and she thought she was allergic to the detergent. Since she came back home, she has not been feeling well, and she was all day in bed the following day, and she felt feverish, having chills, was not able to do anything, was having generalized body aches, started with nasal congestion and sore throat. She started using Mildred and inhalers at home without any significant relief. Her shortness of breath was progressively getting worse. So, she decided to come to the emergency room. In the emergency room, she was found to be having asthma exacerbation along with positive for flu, and the patient is being admitted for further management. When I examined the patient, she is still complaining of chest tightness. The cough is dry with intermittent clear to greenish sputum production, complaining of sore throat, headache, denies any generalized body aches, complaining of chest tightness when going to the bathroom, now feeling better at rest. Denies any nausea, vomiting, abdominal pain, diarrhea, or constipation. Denies any urinary complaints. Denies any leg pains or leg cramps. Denies any neurologic symptoms. PAST MEDICAL HISTORY: Asthma, anxiety, back problems, GERD. PAST SURGICAL HISTORY: She underwent hernia repair in 2013, had an ectopic in 1986. FAMILY HISTORY: Hypertension and diabetes in mother, and father from cancer. PERSONAL HISTORY: She is , having 2 children, unemployed. SOCIAL HISTORY: She smokes one pack per day for many years and drinks alcohol socially. Denies any other drug abuse. ALLERGIES: NO KNOWN DRUG ALLERGIES. HOME MEDICATION: Include DuoNeb, Ventolin. REVIEW OF SYSTEMS: As described in history of present illness. All other systems reviewed and were found to be negative. PHYSICAL EXAMINATION: GENERAL: Middle-aged female, lying in bed, in no acute distress. VITAL SIGNS: Blood pressure 133/81, pulse 70, respirations 20, temperature 97.8 degree Fahrenheit, O2 saturations is 96% on 2 L nasal cannula. HEENT: Pupils equal, round, and reactive to light and accommodation. Extraocular muscles intact. No icterus. No pallor. No oral thrush. No pharyngeal congestion. NECK: Supple. No JVD. LUNGS: Bilateral vesicular breath sounds, bilaterally decreased breath sounds, bilateral occasional wheezing heard. CVS: S1 and S2 present. Regular. ABDOMEN: Soft. Nontender. Bowel sounds present. No guarding, no rigidity. No rebound tenderness noted. SENIOR CLIENT ADVISOR: Alert, awake, oriented x3. No focal deficits noted. EXTREMITIES: No edema. Palpable peripheral pulses. LABS: Done from the ED, WBC 7.7, hemoglobin 14.8, hematocrit 43.3, platelets 354. Sodium 142, potassium 3.7, chloride 100, bicarb 27, BUN 14, creatinine 0.8, glucose 106, calcium 8.9, total bilirubin 0.3, AST 21, ALT 13, alkaline phosphatase 79, troponin x1 negative. ProBNP 46.3, albumin 4, total protein 7.3. Influenza A positive. Cultures are pending. Chest x-ray negative for any infiltrate, COPD. EKG, normal sinus rhythm with first-degree AV block at 76 beats per minute. No acute ST-T changes noted. ASSESSMENT: A middle-aged female with history of asthma, anxiety disorder, chronic back problems, gastroesophageal reflux disease, admitted for about 10-day history of progressive worsening of shortness of breath with sore throat, chest tightness, congestion, and fever. In the ED, the patient was found to be positive for influenza, and the patient is being admitted for further management. 1. Asthma, chronic obstructive pulmonary disease exacerbation. 2. Influenza A positive. PLAN: The patient is being admitted to isolation, gave Tamiflu 75 mg p.o. b.i.d for 5 days. Received Solu-Medrol and nebulizer treatment in the ED. We will continue with bronchodilators, Solu-Medrol 40 mg IV every 8 hours, cough syrup as needed, and Pepcid for GI prophylaxis. Continue heparin for DVT prophylaxis. We will check before and after treatment. We will have further recommendation as her clinical course progresses. Suyapa Simms MD Psychiatric # [id number]
[2017-08-21] MEDS: MethylPREDNISolone 40 mg Vial IVP SCH ×3 (02:10→17:42)
[2017-08-21] MEDS: Albuterol-Ipratrop 3 mg / 0.5 (3 ml) UD INH SCH ×3 (02:30→17:01)
[2017-08-21 08:08] LABS: BASO % 0.3 % (0.0-2.0); HEMOGLOBIN 15.3 g/dL (11.0-16.0); LYMPH # 0.8 K/uL (1.0-4.3); MEAN CELL VOLUME 95.8 fL (81.0-99.0); MEAN CORPUSCULAR HGB CONC 34.4 g/dL (33.0-37.0); MEAN PLATELET VOLUME 8.8 fL (7.2-11.7); MONO # 0.5 K/uL (0.0-0.8); MONO % 5.4 % (0.0-10.0); NEUT # 8.6 K/uL (1.8-7.0); NEUT % 86.3 % (50.0-75.0); PLATELET COUNT 326 K/uL (130-400); RBC 4.64 Mil/uL (3.80-5.20); RED CELL DISTRIBUTION WIDTH 13.1 % (11.5-14.5)
[2017-08-21 08:37] LABS: ALB/GLOB RATIO 1.1 (1.0-2.1); ALBUMIN 3.8 g/dL (3.5-5.0); ALT/SGPT 8 U/L (9-52); AST/SGOT 17 U/L (14-36); BLOOD UREA NITROGEN 11 mg/dL (7-17); CALCIUM 9.4 mg/dl (8.6-10.4); GFR AFRICAN-AMERICAN > 60; GFR NON-AFRICAN AMERICAN > 60
[2017-08-21 09:11] LABS: LYMPHOCYTE 7 % (20-40); MONOCYTE 5 % (0-10); NEUTROPHIL 88 % (50-75); PLATELET ESTIMATE NORMAL (NORMAL); TOTAL CELLS COUNTED 100
--- NOTE | 2017-08-21 15:00 | CP.PCM.PN ---
Subjective - Date & Time of Evaluation Date of Evaluation: 08/21/17 Time of Evaluation: 15:00 - Subjective Subjective: Discharge summary dictated #[id number] Objective - Vital Signs/Intake and Output Vital Signs (last 24 hours): Temp Pulse Resp BP Pulse Ox 97.8 F 74 20 127/84 97 08/21/17 07:10 08/21/17 07:10 08/21/17 07:10 08/21/17 07:10 08/21/17 07:10 - Medications Medications: Current Medications Acetaminophen (Tylenol 325mg Tab) 650 mg PO Q6 PRN PRN Reason: Pain, moderate (4-7) Last Admin: 08/20/17 11:01 Dose: 650 mg Albuterol/Ipratropium (Duoneb 3 Mg/0.5 Mg (3 Ml) Ud) 3 ml INH RQ6 STUART Last Admin: 08/21/17 08:22 Dose: 3 ml Famotidine (Pepcid) 20 mg PO DAILY STUART Last Admin: 08/21/17 09:09 Dose: 20 mg Guaifenesin/Dextromethorphan (Robitussin Dm) 10 ml PO Q4H PRN PRN Reason: Cough and congestion Last Admin: 08/20/17 21:26 Dose: 10 ml Heparin Sodium (Porcine) (Heparin) 5,000 units SC Q12H STUART Last Admin: 08/21/17 10:19 Dose: 5,000 units Methylprednisolone (Solu-Medrol) 40 mg IVP Q8H STUART Last Admin: 08/21/17 09:44 Dose: 40 mg Oseltamivir Phosphate (Tamiflu Cap) 75 mg PO BID STUART PRN Reason: Protocol Stop: 08/25/17 10:01 Last Admin: 08/21/17 09:09 Dose: 75 mg Pneumococcal Polyvalent Vaccine (Pneumovax 23 Vaccine) 0.5 ml IM .ONCE ONE Stop: 08/22/17 14:01 - Labs Labs: 08/21/17 07:58 08/21/17 07:50 APTT 35 SECONDS (21-34) H 08/20/17 07:08
--- NOTE | 2017-08-21 23:18 | CARD ---
APPROVED REPORT EKG Measurement Heart [id number] <Conclusion> Sinus rhythm with 1st degree AV block Possible Left atrial enlargement Cannot rule out Anterior infarct, age undetermined Abnormal ECG
[2017-08-22 13:02] VITALS: BP 115/67; PULSE 85; RESP 18; TEMP 97.9; O2SAT 93
[2017-08-22] MEDS ORDERED: Pneumococcal 23-Valent Vaccine IM ONE (14:00)
--- NOTE | 2017-08-22 18:23 | DS ---
DISCHARGE DIAGNOSES: Asthma exacerbation, influenza A positive, with acute bronchitis. HISTORY OF PRESENT ILLNESS: Ms. Blake is a 57-year-old female with past medical history of asthma for many years, never admitted to the hospital other than treatments in the ED. She has been using Proventil inhaler more than usual for the past 10 days and not able to breathe at home, which made her come to the emergency room. In the ED, the patient was found to be having asthma exacerbation and influenza positive and the patient is being admitted for further management today. The patient is feeling much better. Denies any headache or dizziness. Denies any chest pain, shortness of breath, or wheezing. Denies any nausea, vomiting, abdominal pain, diarrhea, or constipation. Denies any urinary complaints. Denies any leg pains or leg cramps. Her cough is better. REVIEW OF SYSTEMS: All other systems reviewed and were found to be negative. PHYSICAL EXAMINATION: GENERAL: Middle-aged female, lying in bed, in no acute distress. VITAL SIGNS: Blood pressure 115/67, pulse 85, respirations 18, temperature 97.9 degrees Fahrenheit, O2 saturations 97% on room air. HEENT: Pupils equal, round, and reactive to light and accommodation. Extraocular muscles intact. No icterus. No pallor. No oral thrush. No pharyngeal congestion. No nasal congestion. NECK: Supple. No JVD. No thyromegaly. CHEST: Moving equally and bilaterally on respiration. LUNGS: Bilateral vesicular breath sounds. No wheezing. No rhonchi. CVS: S1, S2 present. Regular. ABDOMEN: Soft, nontender. Bowel sounds present. No guarding. No rigidity. No rebound tenderness noted. APPLICATION SECURITY SPECIALIST: Alert, awake, and oriented x3. No focal deficits noted. EXTREMITIES: No edema. Palpable peripheral pulses. LABORATORY DATA: Labs done from this morning, WBC 10, hemoglobin 15.3, hematocrit 44.5, platelets 326. Sodium 141, potassium 4.5, chloride 104, bicarbonate 24, BUN 11, creatinine 0.6, glucose 128. Hemoglobin A1c 5.6, calcium 9.4. Total bilirubin 0.6. AST 17, ALT 8, alkaline phosphatase 71. Blood cultures so far negative. HOSPITAL COURSE: The patient was admitted to the hospital for asthma exacerbation and influenza A positive. The patient was started on Solu-Medrol, nebulizer treatments, and Tamiflu. The patient's symptoms are better and the patient is clinically improving, but the patient claims that she has some emergency at home and she has to get back home to take care of her situation at home. As the patient is clinically improving even though she has some decreased breath sounds and wheezing. Since the patient is anxious to go home, I advised the patient to continue with tapering doses of steroids and Tamiflu at home and advised the patient to return to emergency room if any worsening of symptoms. Also advised the patient to go to her PMD this week for followup. The patient understands the need for followup at the PMD. As the patient is otherwise doing well, the patient is being discharged and I advised the patient to call me if any worsening of symptoms. CONDITION UPON DISCHARGE: The patient is alert, awake, and oriented x3, and hemodynamically stable at the time of discharge. DISCHARGE INSTRUCTIONS: Follow up with PMD and follow up with Pulmonary as outpatient. DIET: Heart-healthy diet. ACTIVITY: As tolerated. DISCHARGE MEDICATIONS: Prednisone tapering doses, Tamiflu 75 mg p.o. b.i.d., nebulizer, Singulair 10 mg p.o. daily, Pepcid 20 mg p.o. b.i.d., Duoneb, and Ventolin inhaler. Also refer to discharge instruction sheet. Suyapa Simms MD
== END 2017-08-21 17:52 | disposition home or self-care (01) | DRG 68 ==
LOC: C.ER 19:10 → C.5S 21:14 → C.9E 21:14 → C.5S 22:41
PROVIDERS: ADMIT Internal Medicine; ATTEND Internal Medicine
DX: J10.1 Influenza due to other identified influenza virus with other respiratory manifestations (principal); J45.901 Unspecified asthma with (acute) exacerbation; F17.210 Nicotine dependence, cigarettes, uncomplicated; K21.9 Gastro-esophageal reflux disease without esophagitis; J20.9 Acute bronchitis, unspecified

== ENCOUNTER 2018-01-20 18:21 | Emergency (ER) | payer OTHER ==
[2018-01-20 18:21] VITALS: BMI 21.7
[2018-01-20 18:46] VITALS: O2SAT 99
--- NOTE | 2018-01-20 19:34 | C.PDOC ---
History Of Present Illness 57 year old female presents to the ED c/o SOB and chest tightness for the past 4 days. Patient states she still smokes a pack a day. Patient is speaking in complete sentences. Patient denies fever, chills, nausea, vomit. Time Seen by Provider: 01/20/18 19:33 Chief Complaint (Nursing): Shortness Of Breath History Per: Patient History/Exam Limitations: no limitations Onset/Duration Of Symptoms: Days (4) Current Symptoms Are (Timing): Still Present Initiating Event: Upper Respiratory Illness Quality: Tightness Current Respiratory Medications: See Home Med List Associated Symptoms: Chest Pain (tightness) Recent travel outside of the [place]: No Additional History Per: Patient Past Medical History Reviewed: Historical Data, Nursing Documentation, Vital Signs Vital Signs: Last Vital Signs Temp 98 F 01/20/18 18:42 Pulse 92 H 01/20/18 18:42 Resp 18 01/20/18 20:05 BP 126/82 01/20/18 18:42 Pulse Ox 99 01/20/18 19:45 - Medical History PMH: Anxiety, Asthma, Back Problems, Emphysema, Fractures (R hip fx, L ankle , r arm), Gastrointestinal Ulcer, Chronic Pain (left hip pain) Surgical History: No Surg Hx - [facility] Procedures LAPAROSCOPIC REPAIR UMBILICAL HERNIA W GRAFT OR PROSTHESIS (03/15/14) OTH LAPAROSCOPIC REP OTH HRN OF ANTER ABD WALL W GRF OR PROS (03/15/14) Family History: States: Unknown Family Hx - Social History Hx Tobacco Use: Yes Hx Alcohol Use: Yes Hx Substance Use: No - Immunization History Hx Tetanus Toxoid Vaccination: No Hx Influenza Vaccination: No Hx Pneumococcal Vaccination: No Review Of Systems Constitutional: Negative for: Fever, Chills Cardiovascular: Positive for: Chest Pain. Negative for: Palpitations Respiratory: Positive for: Shortness of Breath. Negative for: Cough Gastrointestinal: Negative for: Nausea, Vomiting Skin: Negative for: Rash Neurological: Negative for: Weakness, Numbness, Headache Physical Exam - Physical Exam Appears: Non-toxic, No Acute Distress Skin: Warm, Dry Head: Normacephalic Eye(s): bilateral: Normal Inspection Neck: Supple Chest: Symmetrical Cardiovascular: Rhythm Regular Respiratory: No Rales, No Rhonchi, Wheezing (mild ) Gastrointestinal/Abdominal: Soft, No Tenderness, No Guarding, No Rebound Extremity: No Tenderness, No Swelling Extremity: Bilateral: Atraumatic, Normal Color And Temperature, Normal ROM Neurological/Psych: Oriented x3, Normal Speech, Normal Cognition Gait: Steady ED Course And Treatment - Laboratory Results Result Diagrams: 01/20/18 20:08 01/20/18 20:08 ECG: Interpreted By Me, Viewed By Me ECG Rhythm: Sinus Rhythm (87), 1st Degree HB, Nonspecific Changes O2 Sat by Pulse Oximetry: 99 (ON RA) Pulse Ox Interpretation: Normal - Radiology CXR: Interpreted by Me, Viewed By Me Progress Note: Plan: - EKG. - Labs. - Duoneb. - Solumedrol1 25 mg IVP. - Aspirin 325 mg PO Reevaluation Time: 22:29 Reassessment Condition: Improved Disposition Counseled Patient/Family Regarding: Studies Performed, Diagnosis, Need For Followup, Rx Given, Smoking Cessation - Disposition Referrals: Isela Stock MD [Staff Provider] - Disposition: HOME/ ROUTINE Disposition Time: 19:34 Condition: FAIR Additional Instructions: Please return if symptoms recur Prescriptions: Prednisone [Deltasone] 20 mg PO DAILY #5 tablet Instructions: Asthma, Adult (DC) Forms: [employer] (Bermudian) - Clinical Impression Clinical Impression: COPD exacerbation - Scribe Statement The provider has reviewed the documentation as recorded by the Scribe Neil Smith All medical record entries made by the Scribe were at my direction and personally dictated by me. I have reviewed the chart and agree that the record accurately reflects my personal performance of the history, physical exam, medical decision making, and the department course for this patient. I have also personally directed, reviewed, and agree with the discharge instructions and disposition.
[2018-01-20] MEDS ORDERED: Aspirin 325 mg EC Tablets PO STA (19:38)
[2018-01-20] MEDS: Albuterol-Ipratrop 3 mg / 0.5 (3 ml) UD IH SCH ×3 (19:45→20:17)
[2018-01-20] MEDS ORDERED: Aspirin 325 mg EC Tablets PO ONE (19:56)
[2018-01-20] MEDS ORDERED: Albuterol-Ipratrop 3 mg / 0.5 (3 ml) UD ONE (20:03)
[2018-01-20 20:11] LABS: BASO # 0.1 K/uL (0.0-0.2); BASO % 1.3 % (0.0-2.0); EOS # 0.3 K/uL (0.0-0.7); EOS % 3.5 % (0.0-4.0); HEMOGLOBIN 13.7 g/dL (11.0-16.0); LYMPH # 2.9 K/uL (1.0-4.3); LYMPH % 35.3 % (20.0-40.0); MEAN CELL VOLUME 94.2 fL (81.0-99.0); MEAN CORPUSCULAR HEMOGLOBIN 32.1 pg (27.0-31.0); MEAN CORPUSCULAR HGB CONC 34.1 g/dL (33.0-37.0); MEAN PLATELET VOLUME 7.8 fL (7.2-11.7); MONO # 0.9 K/uL (0.0-0.8); MONO % 11.3 % (0.0-10.0); NEUT % 48.6 % (50.0-75.0); RBC 4.25 Mil/uL (3.80-5.20); RED CELL DISTRIBUTION WIDTH 13.1 % (11.5-14.5); WHITE BLOOD COUNT 8.1 K/uL (4.8-10.8)
[2018-01-20 20:19] LABS: PROTHROMBIN TIME 10.8 SECONDS (9.7-12.2)
[2018-01-20 20:26] LABS: ALB/GLOB RATIO 1.5 (1.0-2.1); ALBUMIN 3.8 g/dL (3.5-5.0); ALT/SGPT 16 U/L (9-52); AST/SGOT 20 U/L (14-36); BLOOD UREA NITROGEN 13 mg/dL (7-17); CALCIUM 9.1 mg/dl (8.6-10.4); GFR NON-AFRICAN AMERICAN > 60
[2018-01-20 22:32] VITALS: BP 118/74; PULSE 85; TEMP 98.3
[2018-01-20 22:37] VITALS: RESP 17
--- NOTE | 2018-01-21 13:36 | RAD ---
Date of service: 01/20/2018 PROCEDURE: CHEST RADIOGRAPH, 1 VIEW HISTORY: SOB COMPARISON: 08/19/2017 FINDINGS: LUNGS: Bilateral hyperaeration-similar. No consolidation. PLEURA: No pneumothorax or pleural fluid seen. CARDIOVASCULAR: Normal. OSSEOUS STRUCTURES: No significant abnormalities. VISUALIZED UPPER ABDOMEN: Normal. OTHER FINDINGS: None. IMPRESSION: No interval acute cardiopulmonary pathology noted. Bilateral hyperaeration compatible with background COPD -similar-appearing
--- NOTE | 2018-01-22 14:54 | CARD ---
APPROVED REPORT Date of service: 01/20/2018 EKG Measurement Heart [id number] <Conclusion> Normal sinus rhythm Normal ECG
== END 2018-01-20 22:32 | disposition home or self-care (01) ==
LOC: C.ER 18:21
DX: J44.1 Chronic obstructive pulmonary disease with (acute) exacerbation (principal); F17.210 Nicotine dependence, cigarettes, uncomplicated
CPT/HCPCS: 71045; 80053; 84484; 85025; 85610; 85730; 93005; 94150; 94640; 96374; 99284; J2930

== ENCOUNTER 2018-03-20 07:30 | Emergency (ER) | payer OTHER ==
[2018-03-20 07:30] VITALS: BMI 21.7
[2018-03-20 07:45] VITALS: BP 132/89; PULSE 101; RESP 18; TEMP 98.3; O2SAT 96
--- NOTE | 2018-03-20 07:49 | C.PDOC ---
History Of Present Illness 57 yo female come in for evaluation of posterior midback pain developed for past few days after sustained mechanical fall. Pt reports, " fell down onto my back, since then have some pain over my martinez". Pt reports, pain is localized, worse with movement. Otherwise, pt denies head injury, LOC, syncope, headache, dizziness, neck pain, CP, SOB, dyspnea, palpitation, abd. pain, N/V, UTI sx, saddle anesthesia, incontinence, denies weakness, deformity to B/L UEs and LEs. Ambulate to Ed for evaluation, not in any apparent distress. Time Seen by Provider: 03/20/18 07:31 Chief Complaint (Nursing): Back Pain History Per: Patient Past Medical History Reviewed: Historical Data, Nursing Documentation, Vital Signs Vital Signs: Last Vital Signs Temp 98.3 F 03/20/18 07:36 Pulse 101 H 03/20/18 07:36 Resp 18 03/20/18 07:36 BP 132/89 03/20/18 07:36 Pulse Ox 96 03/20/18 07:36 - Medical History PMH: Anxiety, Asthma, Back Problems, Emphysema, Fractures (R hip fx, L ankle , r arm), Gastrointestinal Ulcer, Chronic Pain (left hip pain) - [facility] Procedures LAPAROSCOPIC REPAIR UMBILICAL HERNIA W GRAFT OR PROSTHESIS (03/15/14) OTH LAPAROSCOPIC REP OTH HRN OF ANTER ABD WALL W GRF OR PROS (03/15/14) Family History: States: Unknown Family Hx - Social History Hx Tobacco Use: Yes Hx Alcohol Use: Yes Hx Substance Use: No - Immunization History Hx Tetanus Toxoid Vaccination: No Hx Influenza Vaccination: No Hx Pneumococcal Vaccination: No Review Of Systems Except As Marked, All Systems Reviewed And Found Negative. Constitutional: Negative for: Fever, Chills Eyes: Negative for: Vision Change ENT: Negative for: Ear Discharge, Nose Discharge, Nose Congestion, Throat Pain Cardiovascular: Negative for: Chest Pain, Palpitations, Orthopnea, Edema, Light Headedness Respiratory: Negative for: Cough, Shortness of Breath Gastrointestinal: Negative for: Nausea, Vomiting, Abdominal Pain, Diarrhea Genitourinary: Negative for: Frequency, Incontinence Musculoskeletal: Positive for: Back Pain. Negative for: Neck Pain Skin: Negative for: Rash, Bruising Neurological: Negative for: Weakness, Incoordination, Headache, Dizziness Physical Exam - Physical Exam Appears: Well, Non-toxic, No Acute Distress Skin: Normal Color, Warm, Dry, No Ecchymosis Head: Atraumatic, Normacephalic Nose: No Deformity, No Tenderness Oral Mucosa: Moist Neck: Normal ROM, Trachea Midline, No Midline Cervical Tenderness, No Paracervi sher Tenderness, No Step Off Deformity, Supple Chest: Symmetrical, No Deformity, No Tenderness, No Ecchymosis, No Subcutaneous Emphysema Cardiovascular: Rhythm Regular, No Murmur, No JVD Respiratory: No Decreased Breath Sounds, No Accessory Muscle Use, No Rales, No Rhonchi, No Stridor, No Wheezing Gastrointestinal/Abdominal: Soft, No Tenderness, No Distention, No Guarding Back: No CVA Tenderness, No Vertebral Tenderness, Other (mild B/L periscapular tenderness, no ecchymoses, no edema, no palpable deformity) Extremity: Normal ROM, No Tenderness, No Deformity, No Swelling Extremity: Bilateral: Atraumatic Neurological/Psych: Oriented x3, Normal Speech, Normal Motor, Normal Sensation, Normal Reflexes ED Course And Treatment O2 Sat by Pulse Oximetry: 96 Pulse Ox Interpretation: Normal - Other Rad Ribs B/L with chest X-Ray: Read By Radiologist Interpretation: Creator : Tasha May V. Dictator : Tasha May V. Automobile Brakes Bonder : Cool Roofing Installer : Tasha May V. Approver2 : Report Date : 03/20/2018 08:17:39. My Comment : . This report is currently processing and HAS NOT BEEN OFFICIALLY SIGNED BY THE PHYSICIAN - ESTIMATED TIME OF APPROVAL IS 03/20/2018 08:23. Date of service: 03/20/2018. PROCEDURE: Radiographs of the chest and bilateral ribs. HISTORY: injury. COMPARISON: 01/20/2018. TECHNIQUE: Frontal radiograph of the chest and multiple oblique radiographs of the bilateral ribs were obtained. FINDINGS: RIGHT RIBS: No fracture or focal lesion visualized. LEFT RIBS: No fracture or focal lesion visualized. LUNGS: Clear. Bilateral hyperaeration- compatible with background COPD-similar. PLEURA: No pneumothorax or pleural fluid. CARDIOVASCULAR: Normal sized heart. No pulmonary vascular congestion. There is presence of aortic atherosclerotic calcification on x-ray. OTHER FINDINGS: None. IMPRESSION: No rib fracture. No pneumothorax or pleural effusion. Similar bilateral hyperaeration-compatible with COPD Progress Note: On re-eval, pt is afebrile, hemodynamicaly stable. Non-toxic. PulsEOx 96% RA. Head: AT/NC. neck: Supple, (-) midline tenderness. Lungs: CTA B/L, BS equal B/L. Neuorlogicaly intact. Imagings review (-) acute fx. Pt has [facility]/w thoracic posterior back contusion. Pt advised. ref. to f/u with PMD in 2 -3 days for re-eval. return if any new changes. Disposition Counseled Patient/Family Regarding: Studies Performed, Diagnosis, Need For Followup, Rx Given - Disposition Referrals: Isela Stock MD [Staff Provider] - Disposition: HOME/ ROUTINE Disposition Time: 08:20 Condition: STABLE Additional Instructions: Light duty Take pain medication as need as prescribed Follow up with PMD in 2-3 days for re-evaluation. return to ED if any worsening or new changes. Prescriptions: Ibuprofen [Motrin Tab] 600 mg PO BID #20 tab Methocarbamol [Robaxin] 500 mg PO TID #14 tab traMADol [Ultram] 50 mg PO TID #7 tab Instructions: Upper Back Pain Forms: [facility] (Japanese) - Clinical Impression Clinical Impression: Contusion of back wall of thorax
--- NOTE | 2018-03-20 08:21 | RAD ---
Date of service: 03/20/2018 PROCEDURE: Radiographs of the chest and bilateral ribs HISTORY: injury COMPARISON: 01/20/2018 TECHNIQUE: Frontal radiograph of the chest and multiple oblique radiographs of the bilateral ribs were obtained. FINDINGS: RIGHT RIBS: No fracture or focal lesion visualized. LEFT RIBS: No fracture or focal lesion visualized. LUNGS: Clear. Bilateral hyperaeration-compatible with background COPD-similar PLEURA: No pneumothorax or pleural fluid. CARDIOVASCULAR: Normal sized heart. No pulmonary vascular congestion. There is presence of aortic atherosclerotic calcification on x-ray. OTHER FINDINGS: None. IMPRESSION: No rib fracture. No pneumothorax or pleural effusion. Similar bilateral hyperaeration-compatible with COPD
== END 2018-03-20 08:50 | disposition home or self-care (01) ==
LOC: C.ER 07:30
DX: S20.222A Contusion of left back wall of thorax, initial encounter (principal); S20.221A Contusion of right back wall of thorax, initial encounter; W18.30XA Fall on same level, unspecified, initial encounter

== ENCOUNTER 2018-09-18 15:03 | Emergency (ER) | payer OTHER ==
[2018-09-18 15:04] VITALS: BMI 21.7
[2018-09-18 15:09] VITALS: O2SAT 96
--- NOTE | 2018-09-18 15:21 | C.PDOC ---
History Of Present Illness 58 y/o female presents to the ED complaining of intermittent cramping to her bilateral thumbs and index fingers today. None at present. Patient also reports burning sensation to the skin. Took 600mg of Motrin for a knee complaint, and states it did not help her hands. She denies any trauma or fall. Time Seen by Provider: 09/18/18 15:10 Chief Complaint (Nursing): Finger,Hand,&Wrist History Per: Patient History/Exam Limitations: no limitations Onset/Duration Of Symptoms: Days (x 1) Current Symptoms Are (Timing): Still Present Past Medical History Reviewed: Historical Data, Nursing Documentation, Vital Signs Vital Signs: Last Vital Signs Temp 97.8 F 09/18/18 15:06 Pulse 108 H 09/18/18 15:06 Resp 20 09/18/18 15:06 BP 102/70 09/18/18 15:06 Pulse Ox 96 09/18/18 15:06 - Medical History PMH: Anxiety, Asthma, Back Problems, Emphysema, Fractures (R hip fx, L ankle , r arm), Gastrointestinal Ulcer, Chronic Pain (left hip pain) - [facility] Procedures LAPAROSCOPIC REPAIR UMBILICAL HERNIA W GRAFT OR PROSTHESIS (03/15/14) OTH LAPAROSCOPIC REP OTH HRN OF ANTER ABD WALL W GRF OR PROS (03/15/14) Family History: States: Unknown Family Hx - Social History Hx Tobacco Use: Yes Hx Alcohol Use: Yes Hx Substance Use: No - Immunization History Hx Tetanus Toxoid Vaccination: No Hx Influenza Vaccination: No Hx Pneumococcal Vaccination: No Review Of Systems Constitutional: Negative for: Fever, Chills Musculoskeletal: Positive for: Hand Pain (cramping to thumbs/fingers) Skin: Negative for: Rash, Lesions Neurological: Negative for: Weakness, Numbness Physical Exam - Physical Exam Appears: Non-toxic, No Acute Distress Skin: Warm, No Rash Respiratory: No Accessory Muscle Use, Other (Normal inspiratory effort, Speaking in full sentences) Extremity: Normal ROM (with full ROM to all digits), No Deformity, No Swelling, Other (No skin changes or lesions, No bony tenderness to the bilateral 1st and 2nd digits) Pulses: Left Radial: Normal, Right Radial: Normal Neurological/Psych: Oriented x3, Normal Motor, Normal Sensation ED Course And Treatment O2 Sat by Pulse Oximetry: 96 (RA) Pulse Ox Interpretation: Normal Medical Decision Making Medical Decision Making: pt with no cramping now, normal exam to bilateral upper extremities. 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 Follow up with Dr Turner (ortho) if hand pain persists. Tylenol or Motrin for pain. 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 - Scribe Statement The provider has reviewed the documentation as recorded by the Scribjeffrey Burns All medical record entries made by the Lauraibjeffrey were at my direction and personally dictated by me. I have reviewed the chart and agree that the record accurately reflects my personal performance of the history, physical exam, medical decision making, and the department course for this patient. I have also personally directed, reviewed, and agree with the discharge instructions and disposition.
[2018-09-18 15:31] VITALS: BP 106/78; PULSE 68; RESP 18; TEMP 98
== END 2018-09-18 15:43 | disposition home or self-care (01) ==
LOC: C.ER 15:03
DX: M79.641 Pain in right hand (principal); M79.642 Pain in left hand; Z72.0 Tobacco use